=== PATIENT | male | born 1940 | race Caucasian/White ===

== ENCOUNTER 2017-01-11 21:12 | Emergency (ER) | payer MEDICARE ==
[~2017-01-11] VITALS: Ht 165.1 cm; Wt 50.0 kg
[~2017-01-11 21:12] MED LIST: AMLO2.5T PO; ASPI-556 PO; AUD NEB; GUAI-789 PO; IPRNEB IH; METH40VI IJ; PANT40TA25 PO; TAMS0.4C32 PO; TIOT185 IH
[2017-01-11 22:18] LABS: BASOPHILS % (AUTO) 0.5 % (0.0-2.0); EOSINOPHILS % (AUTO) 0.8 % (1.0-6.0); HEMATOCRIT 44.5 % (41-53); HEMOGLOBIN 14.2 g/dL (13.5-17.5); LYMPHOCYTES # (AUTO) 1.3 K/uL (1.0-4.8); LYMPHOCYTES % (AUTO) 11.1 % (22.0-44.0); MEAN CORPUSCULAR HEMOGLOBIN 27.7 pg (26.0-34.0); MEAN CORPUSCULAR HGB CONC 31.9 G/dL (31.0-37.0); MEAN CORPUSCULAR VOLUME 87 fL (80-100); MONOCYTES # (AUTO) 1.2 K/uL (0.1-1.0); MONOCYTES % (AUTO) 10.6 % (2.0-9.0); NEUTROPHILS # (AUTO) 8.8 K/uL (1.8-7.7); PLATELET COUNT (AUTO) 277 K/uL (150-450); RED BLOOD CELL COUNT(AUTO) 5.13 MIL/uL (4.50-5.90); RED CELL DISTRIBUTION WIDTH 13.8 % (11.5-14.5); WHITE BLOOD COUNT (AUTO) 11.4 K/uL (4.5-11.0)
[2017-01-11 22:21] LABS: ANION GAP 9 mmol/L (8-16); CALCIUM, TOTAL 8.4 mg/dL (8.8-10.5); CARBON DIOXIDE 29 mmol/L (22-29); CHLORIDE 102 mmol/L (98-107); CREATININE 1.55 mg/dL (0.60-1.30); GLOMERULAR FILTR. RATE CALC 44 mL/min (>60); POTASSIUM 3.9 mmol/L (3.5-5.1); SODIUM SERUM 140 mmol/L (136-145); UREA NITROGEN, BLOOD 25 mg/dL (7-18)
[2017-01-11 22:24] LABS: PROTHROMBIN TIME 10.9 SEC (9.4-11.6)
[2017-01-11 22:28] LABS: ALANINE AMINOTRANSFERASE 12 U/L (12-78); ALBUMIN 3.3 g/dL (3.4-5.0); ASPARTATE AMINOTRANSFERASE 12 U/L (15-37); BILIRUBIN,TOTAL 0.3 mg/dL (0.1-1.0); CREATINE KINASE, TOTAL 45 U/L (39-308); TOTAL PROTEIN, SERUM 7.9 g/dL (6.4-8.2)
[2017-01-11] MEDS ORDERED: SODIUM CHLORIDE 0.9% 1,000 ML IV ONE (22:30)
[2017-01-11 22:47] LABS: B-TYPE NATRIURETIC PEPTIDE 105 pg/mL (0-100)
[2017-01-11 23:00] LABS: APPEARANCE,URINE CLEAR (CLEAR); GLUCOSE, URINE (UA) NEGATIVE (NEGATIVE); KETONES,URINE NEGATIVE (NEGATIVE); LEUKOCYTE ESTERASE ,URINE NEGATIVE (NEGATIVE); OCCULT BLOOD,URINE NEGATIVE (NEGATIVE); PH,URINE 5.5 (5.0-8.0); PROTEIN,URINE POS 1+ (NEGATIVE)
[2017-01-11 23:01] LABS: ADD UA MICROSCOPIC NO
[2017-01-12 02:17] VITALS: BP 122/80
== END 2017-01-12 02:17 | disposition home or self-care (01) ==
LOC: EMS 21:14
DX: R53.1 Weakness (principal); I10 Essential (primary) hypertension; F17.210 Nicotine dependence, cigarettes, uncomplicated; Z79.82 Long term (current) use of aspirin
CPT/HCPCS: 70450; 93005; 96360; 96361; 99285

== ENCOUNTER 2017-04-13 19:03 | Emergency (ER) | payer MEDICARE, OTHER ==
[~2017-04-13] VITALS: Ht 152.4 cm; Wt 50.0 kg
[2017-04-13] MEDS ORDERED: HYDROCODONE/ACETAMINOPHEN 5-325 MG TABLET PO ONE (21:00)
[2017-04-13 22:52] VITALS: BP 147/85
[2017-04-14] MEDS ORDERED: TAMS0.4C32 PO (16:20)
[2017-04-14] MEDS ORDERED: TIOT185 IH (16:20)
[2017-04-14] MEDS ORDERED: IPRA3AMP4 NEB (16:20)
== END 2017-04-13 23:04 | disposition home or self-care (01) ==
LOC: EMS 19:08
DX: S22.42XA Multiple fractures of ribs, left side, initial encounter for closed fracture (principal); I10 Essential (primary) hypertension; J44.9 Chronic obstructive pulmonary disease, unspecified; Z79.82 Long term (current) use of aspirin; Z85.118 Personal history of other malignant neoplasm of bronchus and lung; W01.0XXA Fall on same level from slipping, tripping and stumbling without subsequent striking against object, initial encounter; Y93.89 Activity, other specified; Y92.89 Other specified places as the place of occurrence of the external cause; Y99.9 Unspecified external cause status
CPT/HCPCS: 71101; 93005; 99284

== ENCOUNTER 2018-04-11 21:56 | Inpatient (IN) | payer MEDICARE, MEDICAID ==
[~2018-04-11 21:56] MED LIST changes: +DSS100 PO; -GUAI-789 PO; +IPRA3AMP24 NEB; -IPRNEB IH; +LOSA50TA37 PO; -METH40VI IJ; -PANT40TA25 PO; +[UNRECOGNIZED DRUG - CODE] PO
[2018-04-11 23:01] VITALS: BP 145/57
[2018-04-11] MEDS ORDERED: ALBUTEROL SULFATE 2.5 MG/0.5 ML NEB SOLUTION NEB PRN ×2 (23:30→23:45)
[2018-04-11] MEDS ORDERED: IPRATROPIUM BROMIDE 0.5 MG/2.5 ML NEB SOLUTION NEB PRN (23:30)
[2018-04-11] MEDS ORDERED: MISC MED-CONVERTED FROM AMBULATORY (Ipratropium/Albuterol Sulfate (Duoneb 2.5-0.5 Mg/3 Ml NEB PRN (23:45)
[2018-04-12 00:39] LABS: BASOPHILS % (AUTO) 0.8 % (0.0-2.0); EOSINOPHILS % (AUTO) 4.4 % (1.0-6.0); HEMATOCRIT 38.1 % (41-53); LYMPHOCYTES # (AUTO) 1.3 K/uL (1.0-4.8); LYMPHOCYTES % (AUTO) 13.6 % (22.0-44.0); MEAN CORPUSCULAR HEMOGLOBIN 29.3 pg (26.0-34.0); MEAN CORPUSCULAR HGB CONC 34.2 G/dL (31.0-37.0); MEAN CORPUSCULAR VOLUME 86 fL (80-100); MONOCYTES # (AUTO) 0.8 K/uL (0.1-1.0); MONOCYTES % (AUTO) 8.3 % (2.0-9.0); NEUTROPHILS # (AUTO) 7.1 K/uL (1.8-7.7); NEUTROPHILS % (AUTO) 72.9 % (40.0-70.0); PLATELET COUNT (AUTO) 267 K/uL (150-450); RED BLOOD CELL COUNT(AUTO) 4.45 MIL/uL (4.50-5.90); RED CELL DISTRIBUTION WIDTH 14.3 % (11.5-14.5)
[2018-04-12] MEDS ORDERED: 0.9% SODIUM CHLORIDE 5 ML NEB SOLUTION NEB ONE (00:42)
[2018-04-12 00:46] LABS: CALCIUM, TOTAL 8.3 mg/dL (8.8-10.5); CREATININE 1.48 mg/dL (0.60-1.30); POTASSIUM 4.6 mmol/L (3.5-5.1)
[2018-04-12] MEDS: IPRATROPIUM BROMIDE 0.5 MG/2.5 ML NEB SOLUTION NEB SCH ×4 (00:47→19:53)
[2018-04-12] MEDS: ALBUTEROL SULFATE 2.5 MG/0.5 ML NEB SOLUTION NEB SCH ×4 (00:47→19:53)
[2018-04-12 00:48] LABS: PROTHROMBIN TIME 10.2 SEC (9.4-11.6)
[2018-04-12 00:53] LABS: ALBUMIN 3.1 g/dL (3.4-5.0); BILIRUBIN,TOTAL 0.2 mg/dL (0.1-1.0); MAGNESIUM 2.1 mg/dL (1.80-2.40); TOTAL PROTEIN, SERUM 7.2 g/dL (6.4-8.2)
[2018-04-12 03:30] VITALS: BP 166/77
[2018-04-12 08:00] VITALS: BP 144/66
[2018-04-12] MEDS: ASPIRIN 81 MG CHEWABLE TABLET PO SCH (08:48)
[2018-04-12] MEDS: AmLODIPine BESYLATE 2.5 MG TABLET PO SCH (08:49)
[2018-04-12] MEDS: DOCUSATE SODIUM 100 MG CAPSULE PO SCH ×2 (08:49→19:40)
[2018-04-12] MEDS: TAMSULOSIN HCL 0.4 MG CAPSULE PO SCH (08:49)
[2018-04-12] MEDS: LOSARTAN POTASSIUM 50 MG TABLET PO SCH (08:49)
[2018-04-12] MEDS: TIOTROPIUM BROMIDE 18 MCG/INH HANDIHALER [5] IH SCH (08:50)
[2018-04-12] MEDS: MethylPREDNISolone SOD SUCC 40 MG/ML VIAL IVP SCH ×3 (11:46→23:39)
[2018-04-12 12:00] VITALS: BP 132/55
[2018-04-12] MEDS: CefTRIAXone SODIUM 1 GM in DEXTROSE 5%-WATER 10 ML IV SCH (13:01)
[2018-04-12 15:59] VITALS: BP 148/51
[2018-04-12 19:51] VITALS: BP 117/53
[2018-04-12 23:59] VITALS: BP 112/59
[2018-04-13] MEDS: ALBUTEROL SULFATE 2.5 MG/0.5 ML NEB SOLUTION NEB SCH ×4 (01:41→19:53)
[2018-04-13] MEDS: IPRATROPIUM BROMIDE 0.5 MG/2.5 ML NEB SOLUTION NEB SCH ×4 (01:41→19:53)
[2018-04-13 03:58] VITALS: BP 128/56
[2018-04-13 06:35] LABS: EOSINOPHILS % (AUTO) 0 % (1.0-6.0); HEMATOCRIT 34.7 % (41-53); HEMOGLOBIN 11.7 g/dL (13.5-17.5); LYMPHOCYTES # (AUTO) 0.3 K/uL (1.0-4.8); LYMPHOCYTES % (AUTO) 4.2 % (22.0-44.0); MEAN CORPUSCULAR HEMOGLOBIN 28.9 pg (26.0-34.0); MEAN CORPUSCULAR HGB CONC 33.6 G/dL (31.0-37.0); MEAN CORPUSCULAR VOLUME 86 fL (80-100); MONOCYTES # (AUTO) 0.1 K/uL (0.1-1.0); NEUTROPHILS # (AUTO) 7.6 K/uL (1.8-7.7); PLATELET COUNT (AUTO) 223 K/uL (150-450); RED BLOOD CELL COUNT(AUTO) 4.03 MIL/uL (4.50-5.90); RED CELL DISTRIBUTION WIDTH 14.5 % (11.5-14.5)
[2018-04-13 06:55] LABS: CREATININE 1.44 mg/dL (0.60-1.30); POTASSIUM 4.2 mmol/L (3.5-5.1)
[2018-04-13 06:59] LABS: NEUTROPHILS % (AUTO) 94.8 % (40.0-70.0)
[2018-04-13 08:46] VITALS: BP 128/55
[2018-04-13] MEDS: TAMSULOSIN HCL 0.4 MG CAPSULE PO SCH (08:49)
[2018-04-13] MEDS: DOCUSATE SODIUM 100 MG CAPSULE PO SCH ×2 (08:49→20:42)
[2018-04-13] MEDS: ASPIRIN 81 MG CHEWABLE TABLET PO SCH (08:50)
[2018-04-13] MEDS: TIOTROPIUM BROMIDE 18 MCG/INH HANDIHALER [5] IH SCH (08:50)
[2018-04-13] MEDS: MethylPREDNISolone SOD SUCC 40 MG/ML VIAL IVP SCH ×2 (08:51→17:00)
[2018-04-13] MEDS: LOSARTAN POTASSIUM 50 MG TABLET PO SCH (09:00)
[2018-04-13] MEDS: AmLODIPine BESYLATE 2.5 MG TABLET PO SCH (09:00)
[2018-04-13 11:56] VITALS: BP 120/60
[2018-04-13] MEDS: CefTRIAXone SODIUM 1 GM in DEXTROSE 5%-WATER 10 ML IV SCH (12:28)
[2018-04-13 15:24] VITALS: BP 124/76
[2018-04-13 20:11] VITALS: BP 125/52
[2018-04-14] VITALS (7 sets, daily range): BP systolic 130–148; BP diastolic 60–80
[2018-04-14] MEDS: MethylPREDNISolone SOD SUCC 40 MG/ML VIAL IVP SCH ×3 (00:04→17:06)
[2018-04-14] MEDS: IPRATROPIUM BROMIDE 0.5 MG/2.5 ML NEB SOLUTION NEB SCH ×4 (01:43→20:15)
[2018-04-14] MEDS: ALBUTEROL SULFATE 2.5 MG/0.5 ML NEB SOLUTION NEB SCH ×4 (01:43→20:16)
[2018-04-14] MEDS: TIOTROPIUM BROMIDE 18 MCG/INH HANDIHALER [5] IH SCH (08:20)
[2018-04-14] MEDS: ASPIRIN 81 MG CHEWABLE TABLET PO SCH (08:21)
[2018-04-14] MEDS: LOSARTAN POTASSIUM 50 MG TABLET PO SCH (08:21)
[2018-04-14] MEDS: AmLODIPine BESYLATE 2.5 MG TABLET PO SCH (08:21)
[2018-04-14] MEDS: DOCUSATE SODIUM 100 MG CAPSULE PO SCH ×2 (08:21→20:11)
[2018-04-14] MEDS: TAMSULOSIN HCL 0.4 MG CAPSULE PO SCH (08:21)
[2018-04-14] MEDS: CefTRIAXone SODIUM 1 GM in DEXTROSE 5%-WATER 10 ML IV SCH (13:08)
[2018-04-14] MEDS ORDERED: CHOLECALCIFEROL (VIT D3) 5,000 UNITS CAPSULE PO SCH (18:00)
[2018-04-15] MEDS: MethylPREDNISolone SOD SUCC 40 MG/ML VIAL IVP SCH ×4 (00:12→23:14)
[2018-04-15] MEDS: ALBUTEROL SULFATE 2.5 MG/0.5 ML NEB SOLUTION NEB SCH ×4 (02:15→19:21)
[2018-04-15] MEDS: IPRATROPIUM BROMIDE 0.5 MG/2.5 ML NEB SOLUTION NEB SCH ×4 (02:15→19:21)
[2018-04-15 05:01] VITALS: BP 149/73
[2018-04-15 06:07] LABS: EOSINOPHILS % (AUTO) 0 % (1.0-6.0); HEMATOCRIT 34.3 % (41-53); HEMOGLOBIN 11.8 g/dL (13.5-17.5); LYMPHOCYTES # (AUTO) 0.3 K/uL (1.0-4.8); LYMPHOCYTES % (AUTO) 3.4 % (22.0-44.0); MEAN CORPUSCULAR HEMOGLOBIN 29.5 pg (26.0-34.0); MEAN CORPUSCULAR HGB CONC 34.4 G/dL (31.0-37.0); MEAN CORPUSCULAR VOLUME 86 fL (80-100); MONOCYTES # (AUTO) 0.2 K/uL (0.1-1.0); MONOCYTES % (AUTO) 2.2 % (2.0-9.0); NEUTROPHILS # (AUTO) 9.5 K/uL (1.8-7.7); PLATELET COUNT (AUTO) 228 K/uL (150-450); RED BLOOD CELL COUNT(AUTO) 4.01 MIL/uL (4.50-5.90); RED CELL DISTRIBUTION WIDTH 14.5 % (11.5-14.5)
[2018-04-15 06:10] LABS: CALCIUM, TOTAL 8.1 mg/dL (8.8-10.5); CREATININE 1.19 mg/dL (0.60-1.30); MAGNESIUM 2.2 mg/dL (1.80-2.40); POTASSIUM 5.6 mmol/L (3.5-5.1)
[2018-04-15 06:15] LABS: NEUTROPHILS % (AUTO) 94.4 % (40.0-70.0)
[2018-04-15 07:34] VITALS: BP 150/67
[2018-04-15] MEDS: TAMSULOSIN HCL 0.4 MG CAPSULE PO SCH (08:06)
[2018-04-15] MEDS: LOSARTAN POTASSIUM 50 MG TABLET PO SCH (08:06)
[2018-04-15] MEDS: ASPIRIN 81 MG CHEWABLE TABLET PO SCH (08:06)
[2018-04-15] MEDS: DOCUSATE SODIUM 100 MG CAPSULE PO SCH ×2 (08:06→19:35)
[2018-04-15] MEDS: AmLODIPine BESYLATE 2.5 MG TABLET PO SCH (08:06)
[2018-04-15] MEDS: TIOTROPIUM BROMIDE 18 MCG/INH HANDIHALER [5] IH SCH (08:06)
[2018-04-15] MEDS: AmLODIPine BESYLATE 5 MG TABLET PO SCH ×2 (10:15→19:36)
[2018-04-15] MEDS ORDERED: SODIUM POLYSTYRENE SULFONATE 15 GM/60 ML SUSPENSION BOTTLE PO ONE (10:45)
[2018-04-15] MEDS: CefTRIAXone SODIUM 1 GM in DEXTROSE 5%-WATER 10 ML IV SCH (11:16)
[2018-04-15 11:25] VITALS: BP 144/65
[2018-04-15 16:20] VITALS: BP 139/71
[2018-04-15 20:00] VITALS: BP 147/66
[2018-04-15 23:19] VITALS: BP 140/67
[2018-04-16] MEDS: ALBUTEROL SULFATE 2.5 MG/0.5 ML NEB SOLUTION NEB SCH ×3 (01:38→14:00)
[2018-04-16] MEDS: IPRATROPIUM BROMIDE 0.5 MG/2.5 ML NEB SOLUTION NEB SCH ×3 (01:39→14:00)
[2018-04-16 04:29] VITALS: BP 170/85
[2018-04-16 06:40] LABS: BILIRUBIN,TOTAL 0.1 mg/dL (0.1-1.0); CREATININE 1.26 mg/dL (0.60-1.30); TOTAL PROTEIN, SERUM 6.8 g/dL (6.4-8.2)
[2018-04-16] MEDS: DOCUSATE SODIUM 100 MG CAPSULE PO SCH (07:38)
[2018-04-16] MEDS: TIOTROPIUM BROMIDE 18 MCG/INH HANDIHALER [5] IH SCH (07:48)
[2018-04-16] MEDS: ASPIRIN 81 MG CHEWABLE TABLET PO SCH (07:51)
[2018-04-16] MEDS: AmLODIPine BESYLATE 5 MG TABLET PO SCH (07:51)
[2018-04-16] MEDS: MethylPREDNISolone SOD SUCC 40 MG/ML VIAL IVP SCH ×2 (07:51→16:27)
[2018-04-16] MEDS: TAMSULOSIN HCL 0.4 MG CAPSULE PO SCH (07:51)
[2018-04-16 08:34] VITALS: BP 147/78
[2018-04-16] MEDS ORDERED: LOSARTAN POTASSIUM 25 MG TABLET PO SCH (09:00)
[2018-04-16] MEDS ORDERED: AMLO-511 PO (10:08)
[2018-04-16] MEDS ORDERED: LOSA25TA21 PO (10:08)
[2018-04-16] MEDS ORDERED: PRED20 PO (10:13)
[2018-04-16 11:25] VITALS: BP 124/51
[2018-04-16] MEDS: CefTRIAXone SODIUM 1 GM in DEXTROSE 5%-WATER 10 ML IV SCH (13:03)
[2018-04-16 16:01] VITALS: BP 153/70
== END 2018-04-16 18:49 | disposition home or self-care (01) | DRG 191 ==
LOC: 6N 22:15
PROVIDERS: ADMIT Internal Medicine; ATTEND Internal Medicine
DX: J44.1 Chronic obstructive pulmonary disease with (acute) exacerbation (principal); I50.32 Chronic diastolic (congestive) heart failure; I11.0 Hypertensive heart disease with heart failure; N40.0 Benign prostatic hyperplasia without lower urinary tract symptoms; F17.210 Nicotine dependence, cigarettes, uncomplicated; E87.5 Hyperkalemia; Z85.118 Personal history of other malignant neoplasm of bronchus and lung; Z79.82 Long term (current) use of aspirin; Z79.899 Other long term (current) drug therapy
CPT/HCPCS: 83735; 84132; 94640; 97162; 97165; 97530; 97535; 99285; J0696; J2920; J7060